=== PATIENT | male | born 1950 | race African-American/Black ===

== ENCOUNTER 2016-09-13 06:18 | Observation (INO) | payer MEDICARE, OTHER ==
[~2016-09-13] VITALS: Ht 167.6 cm; Wt 78.6 kg
[~2016-09-13 06:18] MED LIST: CYCL10 PO; CeFAZolin 2 GM/DEXTROSE 50 ML IV ONE; GABA-533 PO; OXYC5TAB3 PO; SODIUM CHLORIDE 0.9% 1,000 ML IV ONE
[2016-09-13] MEDS ORDERED: GUM MASTIC/STORAX/MSAL/ALCOHOL LIQUID 0.67 ML VIAL TP ONE (06:19)
[2016-09-13] MEDS ORDERED: VANCOMYCIN HCL 1 GM/VIAL ONE (06:20)
[2016-09-13] MEDS ORDERED: BUPIVACAINE HCL/PF 0.5% 30 ML VIAL ONE (06:20)
[2016-09-13] MEDS ORDERED: SODIUM CHLORIDE 0.9% 1,000 ML IV ONE (06:30)
[2016-09-13] MEDS ORDERED: DiphenhydrAMINE HCL 50 MG/ML VIAL IVP PRN (07:00)
[2016-09-13] MEDS ORDERED: MAG HYDROX/AL HYDROX/SIMETH 30 ML SUSP UDCUP PO PRN (07:00)
[2016-09-13] MEDS ORDERED: ZOLPIDEM TARTRATE 10 MG TABLET PO PRN (07:00)
[2016-09-13] MEDS ORDERED: BENZOCAINE/MENTHOL LOZENGE [8 LOZENGES/PACKET] PO PRN (07:00)
[2016-09-13] MEDS ORDERED: DEXAMETHASONE SOD PHOS 4 MG/ML VIAL IVP PRN (07:00)
[2016-09-13] MEDS ORDERED: PROPOFOL 1000 MG/ISO-OSM 100 ML IV ONE (07:13)
[2016-09-13] MEDS ORDERED: FentaNYL CITRATE-PF 100 MCG/2 ML VIAL IVP PRN (07:15)
[2016-09-13] MEDS ORDERED: MEPERIDINE-PF 25 MG/ML SYRINGE IVP PRN (07:15)
[2016-09-13] MEDS ORDERED: HYDROmorphone 2 MG/ML SYRINGE IVP PRN ×2 (07:15)
[2016-09-13] MEDS: ACETAMINOPHEN 1000 MG/ISO-OSM 100 ML IV SCH ×3 (07:15→19:00)
[2016-09-13] MEDS ORDERED: CeFAZolin 2 GM/DEXTROSE 50 ML IV ONE (08:00)
[2016-09-13] MEDS: OXYGEN THERAPY IH SCH ×2 (08:00→21:38)
[2016-09-13 09:10] VITALS: BP 106/70
[2016-09-13] MEDS: DOCUSATE SODIUM 100 MG CAPSULE PO SCH ×2 (09:45→21:38)
[2016-09-13] MEDS: CYCLOBENZAPRINE HCL 10 MG TABLET PO SCH ×3 (09:47→21:39)
[2016-09-13] MEDS ORDERED: NEOSTIGMINE METHYLSULFATE 1 MG/ML 10 ML VIAL IVP ONE (12:00)
[2016-09-13] MEDS ORDERED: ROCURONIUM BROMIDE 10 MG/ML 5 ML VIAL IVP ONE (12:00)
[2016-09-13] MEDS ORDERED: LIDOCAINE HCL/PF 2% 5 ML VIAL INJ ONE (12:00)
[2016-09-13] MEDS ORDERED: DEXAMETHASONE SOD PHOS 4 MG/ML VIAL IVP ONE (12:00)
[2016-09-13] MEDS ORDERED: METOCLOPRAMIDE HCL 5 MG/ML 2 ML VIAL IVP ONE (12:00)
[2016-09-13] MEDS ORDERED: PROPOFOL 1% 20 ML VIAL IVP ONE (12:00)
[2016-09-13] MEDS ORDERED: ONDANSETRON HCL 4 MG/2 ML VIAL IVP ONE (12:00)
[2016-09-13] MEDS ORDERED: GLYCOPYRROLATE 0.2 MG/ML VIAL IM ONE (12:00)
[2016-09-13 12:04] VITALS: BP 128/76
[2016-09-13 16:00] VITALS: BP 107/79
[2016-09-13 20:00] VITALS: BP 107/64
[2016-09-14] MEDS: ACETAMINOPHEN 1000 MG/ISO-OSM 100 ML IV SCH ×2 (00:41→06:55)
[2016-09-14 00:45] VITALS: BP 129/64
[2016-09-14 05:09] VITALS: BP 141/77
[2016-09-14 07:30] VITALS: BP 112/70
[2016-09-14] MEDS: OXYGEN THERAPY IH SCH (08:00)
[2016-09-14] MEDS: DOCUSATE SODIUM 100 MG CAPSULE PO SCH (08:07)
[2016-09-14] MEDS: CYCLOBENZAPRINE HCL 10 MG TABLET PO SCH (08:07)
[2016-09-14] MEDS ORDERED: FentaNYL CITRATE-PF 100 MCG/2 ML VIAL IVP ONE (10:28)
[2016-09-14] MEDS ORDERED: MIDAZOLAM HCL 2 MG/2 ML VIAL IVP ONE (10:28)
== END 2016-09-14 10:29 | disposition home or self-care (01) ==
LOC: 4E 06:18
PROVIDERS: ADMIT Orthopaedic Surgery Orthopaedic Surgery of the Spine; ATTEND Orthopaedic Surgery Orthopaedic Surgery of the Spine
DX: M48.06 Spinal stenosis, lumbar region (principal); I10 Essential (primary) hypertension
CPT/HCPCS: 63047; 87081; 88304; 88311; 93005; 96374; 96376 ×2; 97161; 97165; G0378 ×2; G8978; G8979; G8980; G8987; G8988; G8989; J0131 ×2; J0690; J1100; J2250; J2405; J2704 ×2; J2765; J3010; J3370; J3490 ×4; J7030

== ENCOUNTER 2017-05-23 06:35 | Inpatient (IN) | payer MEDICARE, OTHER ==
[~2017-05-23] VITALS: Ht 167.6 cm; Wt 81.8 kg
[2017-05-23] MEDS ORDERED: RINGERS SOLUTION,LACTATED 1,000 ML IV ONE ×3 (06:53→09:09)
[2017-05-23] MEDS ORDERED: CeFAZolin 2 GM/DEXTROSE 50 ML IV ONE ×2 (06:54→07:00)
[2017-05-23] MEDS ORDERED: VANCOMYCIN HCL 1 GM/VIAL ONE (07:05)
[2017-05-23] MEDS ORDERED: BUPIVACAINE HCL/PF 0.5% 30 ML VIAL ONE (07:06)
[2017-05-23] MEDS ORDERED: BUPIVACAINE LIPOSOME/PF 1.3%-13.3MG/ML SUSPENSION 10 ML VIAL INJ ONE (07:30)
[2017-05-23] MEDS ORDERED: ZOLPIDEM TARTRATE 10 MG TABLET PO PRN (08:15)
[2017-05-23] MEDS ORDERED: DEXAMETHASONE SOD PHOS 4 MG/ML VIAL IVP PRN (08:15)
[2017-05-23] MEDS ORDERED: BENZOCAINE/MENTHOL LOZENGE [8 LOZENGES/PACKET] PO PRN (08:15)
[2017-05-23] MEDS ORDERED: DiphenhydrAMINE HCL 50 MG/ML VIAL IVP PRN (08:15)
[2017-05-23] MEDS ORDERED: MAG HYDROX/AL HYDROX/SIMETH 30 ML SUSP UDCUP PO PRN (08:15)
[2017-05-23] MEDS ORDERED: ONDANSETRON HCL 4 MG/2 ML VIAL IVP PRN (09:30)
[2017-05-23] MEDS ORDERED: HYDROmorphone 2 MG/ML SYRINGE IVP PRN ×2 (09:30)
[2017-05-23] MEDS ORDERED: MEPERIDINE-PF 25 MG/ML SYRINGE IVP PRN (09:30)
[2017-05-23] MEDS ORDERED: FentaNYL CITRATE-PF 100 MCG/2 ML VIAL IVP PRN (09:30)
[2017-05-23 12:05] VITALS: BP 112/75
[2017-05-23 15:26] VITALS: BP_SYST 125; BP_DIAS 78; BP_DIAS 8
[2017-05-23] MEDS: ACETAMINOPHEN 1000 MG/ISO-OSM 100 ML IV SCH ×3 (15:45→20:55)
[2017-05-23 19:57] VITALS: BP 112/68
[2017-05-23] MEDS: OXYGEN THERAPY IH SCH (20:00)
[2017-05-23] MEDS: DOCUSATE SODIUM 100 MG CAPSULE PO SCH (20:55)
[2017-05-23] MEDS: CYCLOBENZAPRINE HCL 10 MG TABLET PO SCH (20:55)
[2017-05-23 23:12] VITALS: BP 109/63
[2017-05-24] MEDS: ACETAMINOPHEN 1000 MG/ISO-OSM 100 ML IV SCH (03:44)
[2017-05-24 04:49] VITALS: BP 109/61
[2017-05-24] MEDS ORDERED: ROCURONIUM BROMIDE 10 MG/ML 5 ML VIAL IVP ONE (05:13)
[2017-05-24] MEDS ORDERED: ONDANSETRON HCL 4 MG/2 ML VIAL IVP ONE (05:13)
[2017-05-24] MEDS ORDERED: DEXAMETHASONE SOD PHOS 4 MG/ML VIAL IVP ONE (05:13)
[2017-05-24] MEDS ORDERED: PROPOFOL 1% 20 ML VIAL IVP ONE (05:13)
[2017-05-24] MEDS ORDERED: MIDAZOLAM HCL 2 MG/2 ML VIAL IVP ONE (05:13)
[2017-05-24] MEDS ORDERED: 0.9% SODIUM CHLORIDE 10 ML VIAL IVP ONE (05:13)
[2017-05-24] MEDS ORDERED: ESMOLOL HCL 10 MG/ML 10 ML VIAL IVP ONE (05:13)
[2017-05-24] MEDS ORDERED: GLYCOPYRROLATE 0.2 MG/ML VIAL IM ONE (05:13)
[2017-05-24] MEDS ORDERED: FentaNYL CITRATE-PF 100 MCG/2 ML VIAL IVP ONE (05:13)
[2017-05-24] MEDS ORDERED: PHENYLEPHRINE HCL 10 MG/ML VIAL IVP ONE (05:13)
[2017-05-24] MEDS ORDERED: NEOSTIGMINE METHYLSULFATE 1 MG/ML 10 ML VIAL IVP ONE (05:13)
[2017-05-24] MEDS ORDERED: LIDOCAINE HCL/PF 2% 5 ML VIAL IM ONE (05:13)
[2017-05-24] MEDS: OXYGEN THERAPY IH SCH (08:00)
[2017-05-24 08:07] VITALS: BP 125/79
[2017-05-24] MEDS: CYCLOBENZAPRINE HCL 10 MG TABLET PO SCH (08:31)
[2017-05-24] MEDS: DOCUSATE SODIUM 100 MG CAPSULE PO SCH (08:31)
[2017-05-24] MEDS ORDERED: OxyCODONE HCL/ACETAMINOPHEN 5-325 MG TABLET PO PRN (09:00)
[2017-05-24 11:24] VITALS: BP 118/77
== END 2017-05-24 12:50 | disposition home or self-care (01) | DRG 520 ==
LOC: 4E 06:35
PROVIDERS: ADMIT Orthopaedic Surgery Orthopaedic Surgery of the Spine; ATTEND Orthopaedic Surgery Orthopaedic Surgery of the Spine
PROC: 00NY0ZZ Release Lumbar Spinal Cord, Open Approach (ICD-10-PCS; principal; 2017-05-23 09:00)
DX: M48.061 Spinal stenosis, lumbar region without neurogenic claudication (principal)
CPT/HCPCS: 87081; 97161; 97165; J0131; J0690; J1100; J2250; J2370; J2405; J2704; J3010; J3370; J3490; J7120

== ENCOUNTER 2020-03-24 12:20 | Emergency (ER) | payer MEDICARE, OTHER ==
[~2020-03-24] VITALS: Ht 167.6 cm; Wt 72.7 kg
[2020-03-24] MEDS ORDERED: ACETAMINOPHEN 325 MG TABLET PO ONE (15:30)
[2020-03-24 17:08] LABS: BASOPHILS % (AUTO) 0.4 % (0.0-2.0); EOSINOPHILS % (AUTO) 0.8 % (1.0-6.0); HEMOGLOBIN 15.4 g/dL (13.5-17.5); LYMPHOCYTES # (AUTO) 1.4 K/uL (1.0-4.8); LYMPHOCYTES % (AUTO) 23.4 % (22.0-44.0); MEAN CORPUSCULAR HEMOGLOBIN 30.4 pg (26.0-34.0); MEAN CORPUSCULAR HGB CONC 33.5 G/dL (31.0-37.0); MEAN CORPUSCULAR VOLUME 91 fL (80-100); MONOCYTES # (AUTO) 0.6 K/uL (0.1-1.0); NEUTROPHILS % (AUTO) 65.4 % (40.0-70.0); PLATELET COUNT (AUTO) 259 K/uL (150-450); RED BLOOD CELL COUNT(AUTO) 5.07 MIL/uL (4.50-5.90); RED CELL DISTRIBUTION WIDTH 13.2 % (11.5-14.5)
[2020-03-24 17:23] LABS: ANION GAP 7 mmol/L (8-16); CALCIUM, TOTAL 8.9 mg/dL (8.8-10.5); CARBON DIOXIDE 29 mmol/L (22-29); CHLORIDE 100 mmol/L (98-107); CREATININE 0.98 mg/dL (0.60-1.30); GLUCOSE,RANDOM 88 mg/dL (70-110); SODIUM SERUM 136 mmol/L (136-145); UREA NITROGEN, BLOOD 12 mg/dL (7-18)
[2020-03-24 17:25] LABS: GLOMERULAR FILTR. RATE CALC > 60 mL/min (>60)
[2020-03-24 17:30] LABS: ALANINE AMINOTRANSFERASE 38 U/L (12-78); ALBUMIN 3.9 g/dL (3.4-5.0); ALKALINE PHOSPHATASE 72 U/L (46-116); ASPARTATE AMINOTRANSFERASE 21 U/L (15-37); BILIRUBIN,TOTAL 1.5 mg/dL (0.1-1.0); TOTAL PROTEIN, SERUM 8.6 g/dL (6.4-8.2)
[2020-03-24 17:31] LABS: INR 1.1 (0.9-1.1); PROTHROMBIN TIME 11.2 SEC (9.4-11.6)
[2020-03-24 18:15] VITALS: BP 133/67
== END 2020-03-24 18:42 | disposition home or self-care (01) ==
LOC: EMS 12:27
DX: S90.31XA Contusion of right foot, initial encounter (principal); X58.XXXA Exposure to other specified factors, initial encounter; Y93.89 Activity, other specified; Y92.89 Other specified places as the place of occurrence of the external cause; Y99.8 Other external cause status
CPT/HCPCS: 93971

== ENCOUNTER 2020-03-29 09:02 | Emergency (ER) | payer MEDICARE, OTHER ==
[~2020-03-29] VITALS: Ht 167.6 cm; Wt 81.8 kg
[2020-03-29 14:13] VITALS: BP 122/70
== END 2020-03-29 14:14 | disposition home or self-care (01) ==
LOC: EMS 09:02
DX: M79.81 Nontraumatic hematoma of soft tissue (principal); M79.604 Pain in right leg
CPT/HCPCS: 93971; Z7502